=== PATIENT | female | born 1965 | race Caucasian/White ===

== ENCOUNTER → 2020-02-11 | Outpatient (CLI) | payer BC, OTHER ==
[~2020-02-11] MED LIST: ALBUTEROL2.5 MG/0.5 INH; LOESTRIN FE 1.1 EACH PO; NAPROSYN500 MG PO; NORCO 5-325 TA1 EACH PO; PRADAXA150 MG PO; PRAVACHOL40 MG PO; PULMICORT0.25 MG/2; ZANTAC 150MG T150 MG PO
== END ==
LOC: SJCVCIMAG 08:36
PROVIDERS: ATTEND Internal Medicine Cardiovascular Disease
DX: R06.00 Dyspnea, unspecified (principal); Z82.49 Family history of ischemic heart disease and other diseases of the circulatory system

== ENCOUNTER → 2020-02-11 | Outpatient (CLI) | payer OTHER | LOC: RAD 11:09 | PROVIDERS: ATTEND Internal Medicine Cardiovascular Disease | DX: Z13.6 Encounter for screening for cardiovascular disorders (principal); I25.10 Atherosclerotic heart disease of native coronary artery without angina pectoris; E78.00 Pure hypercholesterolemia, unspecified ==